=== PATIENT | female | born 1970 | race Caucasian/White ===

== ENCOUNTER 2018-06-19 21:15 | Emergency (ER) | payer MEDICAID, SELFPAY ==
[2018-06-19 21:17] VITALS: BP 171/120; PULSE 92; RESP 18; TEMP 37; O2SAT 97; BMI 36.6
--- NOTE | 2018-06-19 21:57 | EKG12_ITS ---
Test Reason : CHEST PAIN Blood Pressure : / mmHG Vent. Rate : 084 BPM Atrial Rate : 084 BPM P-R Int : 164 ms QRS Dur : 080 ms QT Int : 358 ms P-R-T Axes : 020 006 016 degrees QTc Int : 423 ms Normal sinus rhythm Normal ECG Confirmed by CORNELIO SHUKLA MD ([id number]), electronic news gathering editor MUKUL GIBBS ([id number] on 06/22/2018 3:25:38 PM Referred By: ONI Confirmed By:CORNELIO SHUKLA MD
--- NOTE | 2018-06-19 22:00 | RAD_ITS ---
STUDY: X-RAY CHEST REASON FOR EXAM: Female, 47 years old. Chest tightness TECHNIQUE: Single frontal view of the chest. COMPARISON: None. FINDINGS: The lungs are clear and expanded. There is no demonstrated pleural abnormality. Normal size heart. Normal mediastinum and miki. Normal visualized pulmonary arteries. Normal visualized aortic arch and descending thoracic aorta. Normal visualized thoracic spine. Normal visualized ribs, clavicles, and shoulders. There is no demonstrated abnormality of the visualized soft tissue structures of the upper abdomen. RAD/Chest 1 View (Portable) IMPRESSION: Normal x-ray examination of the chest. Electronically Signed: Neil Saldivar MD at 22:33 EDT , Service support ,
[2018-06-19 22:03] VITALS: BP 172/96; PULSE 97; RESP 20; O2SAT 97
--- NOTE | 2018-06-19 22:03 | ED.VISSUMM ---
- ER Visit Summary Date of Service: 06/19/18 Chief Complaint: Chest pain History of Present Illness: The patient is a 47 F presenting with chest pain. Patient states this started 5 hours prior to arrival. She was at work when it started. She describes it as a chest tightness. She has had these symptoms in the past with asthma. She used her inhaler which improved her symptoms. She states she has been under a lot of stress. She denies nausea, vomiting, diaphoresis. Denies cough, fever. Denies lightheadedness or syncope. She has no coronary disease risk factors. No PE/DVT risk factors. She has a history of asthma. She is not a smoker. Physical Examination: Vitals are stable. Patient is afebrile. Alert no acute distress. HEENT exam is unremarkable. Neck is supple. Lungs are clear and equal bilaterally. Heart is regular rate and rhythm. Abdomen is soft nontender nondistended. Extremities are unremarkable. Skin is warm and dry. No focal neurologic deficit. Remainder of exam is unremarkable. Emergency Department Course and Treatment: Patient was given aspirin on arrival. EKG is sinus rate of 84 with no acute ischemic changes. Chest x-ray shows no acute process. CBC is normal except for white count 11.2. Chemistries unremarkable. D-dimer is negative. Troponin is negative. Patient has no risk factors and is low risk. She is pain-free on reevaluation. Will obtain delta troponin. Delta troponin will be signed out to the oncoming physician. Disposition: Pending Impression: Chest pain This note was generated with [employer] dictation software. It may contain incorrect words, spelling, and punctuation that were not noted in review of the chart prior to signing ED Disposition - Plan for ED Patient: Chief Complaint: Chest Pain Instructions: ED Chest Pain Atypical Unkn Cause Referrals: Gurjit Smith MD [Primary Care Provider] -
[2018-06-19] MEDS: Aspirin 81 MG TAB.CHEW 324 MG PO (22:12)
[2018-06-19 22:24] LABS: Absolute Lymphocyte Count 3.28 X10^3/ul (0.83-4.51); Absolute Neutrophil Count 6.8 X10^3/uL (2.0-7.7); Basophil# 0.02 X10^3/uL; Basophil% 0.2 % (0-1); Eosinophil# 0.21 X10^3/uL; Eosinophils% 1.9 % (0-5); Hematocrit 40.9 % (37-47); Hemoglobin 13.7 g/dl (12.0-15.0); Lymphocyte # 3.28 X10^3/ul (4.0); Lymphocyte % 29.2 % (19-41); Mean Corp Hgb Conc 33.5 g/gl (32-36); Mean Corpuscular Hgb 29.3 pg (27.0-32.0); Mean Corpuscular Volume 87.4 fL (81-99); Mean Platelet Vol. 8.8 fl (6.2-12.0); Monocyte# 0.94 X10^3/uL; Monocyte% 8.4 % (0-10); Neutrophil # 6.76 X10^3/uL (2.7-7.7); Neutrophil % 60.1 % (47-70); Platelet Count 321 K/mm3 (150-450); RBC Distribution Width CV 12.5 % (11.6-14.6); Red Blood Count 4.68 M/mm3 (4.2-5.4); White Blood Count 11.2 K/mm3 (4.4-11.0)
[2018-06-19 22:34] LABS: POSITIVE COUNT NO; POSITIVE DIFFERENTIAL NO; POSITIVE MORPHOLOGY NO
[2018-06-19 22:40] LABS: Anion Gap 9 (5-15); BUN 11 mg/dL (7-18); BUN/Creat Ratio 16.6 RATIO (10-20); Calcium,Total 8.7 mg/dL (8.5-10.1); Chloride 104 mmol/L (98-107); Creatinine, Serum 0.66 mg/dL (0.55-1.02); EST Glomerular Filtration Rate 101 mL/min (>60); Est Glom Filt Rate - Afr Amer 122 mL/min (>60); Estimated Creatinine Clearance 90.02 ml/min; Glucose 96 mg/dL (74-106); Potassium 3.5 mmol/L (3.5-5.1); Sodium Level 138 mmol/L (136-145)
[2018-06-19 22:43] LABS: D-Dimer Quantitative (DVT/PE) 0.28 FEU/ug/m (0.27-0.49)
[2018-06-19 23:00] VITALS: BP 181/100; PULSE 91; RESP 12; O2SAT 97
--- NOTE | 2018-06-19 23:45 | ED.DEP ---
ED Disposition - Plan for ED Patient: Chief Complaint: Chest Pain Instructions: ED Chest Pain Atypical Unkn Cause Referrals: Gurjit Smith MD [Primary Care Provider] -
[2018-06-20 01:58] VITALS: BP 172/96; PULSE 83; RESP 18; O2SAT 97
== END 2018-06-20 01:58 | disposition home or self-care (01) ==
PROVIDERS: Emergency Provider Emergency Medicine; Family Provider Internal Medicine; PCP Internal Medicine
DX: R07.9 Chest pain, unspecified (principal); J45.909 Unspecified asthma, uncomplicated; Z87.442 Personal history of urinary calculi; Z79.51 Long term (current) use of inhaled steroids
CPT/HCPCS: 71045; 80048; 84484; 85025; 85379; 93005; 99284

== ENCOUNTER 2018-10-11 13:48 | Emergency (ER) | payer MEDICAID, SELFPAY ==
[2018-10-11 13:51] VITALS: BP 150/99; PULSE 78; RESP 18; TEMP 36.9; O2SAT 97; BMI 37.9
--- NOTE | 2018-10-11 14:07 | ED.VISSUMM ---
- ER Visit Summary Date of Service: 10/11/18 Chief Complaint: [] Right paralumbar back pain since yesterday improved History of Present Illness: The patient is a 47 F [] [address] of that type of pain long-standing she is been seen by her physician had physical therapy yesterday she turned twisting her back and had pain to the right paralumbar back she took ibuprofen ice she is feeling better today presents for evaluation no numbness weakness or paresthesias actually no symptoms right now normal bowel bladder habits no direct trauma again she has had this in the past Physical Examination: [] General, no distress resting comfortably HEENT is generally unremarkable The neck is supple no adenopathy Cardiovascular, regular rate and rhythm Lungs, clear bilateral Abdomen, soft nontender Extremities, no clubbing cyanosis or edema her back she points to the right paralumbar area this area is nontender the midline back is nontender and the rest of her back and physical exam are unremarkable Neurologic, awake alert answering questions appropriately moving all 4 extremities Test Results: [] Emergency Department Course and Treatment: [] Feeling better at with home therapy at this time she will be given Toradol which she is been able to take follow with her doctors return for change in symptoms she agrees that imaging is not necessary Treatment Plan: [] Disposition: [] Home stable Impression: [] Acute recurrent lumbar back pain This note was generated with [employer] dictation software. It may contain incorrect words, spelling, and punctuation that were not noted in review of the chart prior to signing ED Disposition - Plan for ED Patient: Chief Complaint: Back Referrals: Gurjit Smith MD [Primary Care Provider] -
--- NOTE | 2018-10-11 14:08 | ED.DEP ---
ED Disposition - Plan for ED Patient: Chief Complaint: Back Instructions: ED Spasm Back No Trauma Referrals: Gurjit Smith MD [Primary Care Provider] -
[2018-10-11] MEDS: Ketorolac 60 MG/2 ML Vial IM (14:30)
[2018-10-11 14:37] VITALS: RESP 18; O2SAT 98
== END 2018-10-11 14:48 | disposition home or self-care (01) ==
LOC: ED 14:30
PROVIDERS: Emergency Provider Emergency Medicine; Family Provider Internal Medicine; PCP Internal Medicine
DX: M54.5 Low back pain (principal); Z79.51 Long term (current) use of inhaled steroids; Z79.899 Other long term (current) drug therapy
CPT/HCPCS: 96372; 99282

== ENCOUNTER 2019-08-08 08:37 | Emergency (ER) | payer MEDICAID, SELFPAY ==
[2019-08-08 08:38] VITALS: BP 161/105; PULSE 76; RESP 16; TEMP 35.8; O2SAT 99; BMI 37.3
--- NOTE | 2019-08-08 08:50 | ED.VIS.GEN ---
History of Present Illness Chief Complaint: Back Informant: Patient Onset: Yesterday Current Severity: Mild Narrative: Complains of mild right-sided back pain that occurred yesterday as she was positioning her grandchild leaning over to put him in a chair, history of lumbar back ailment possibly disc disease she seen pain management had her back injected a few months ago doing well and no numbness weakness paresthesias no bowel or bladder complaints no direct trauma indicates she simply could not go to work today because her back continued to have some discomfort and needs a work release Past Medical History - Allergies and Home Meds Allergies/Adverse Reactions: Allergies No Known Allergies Allergy (Verified 08/08/19 08:42) Primary Care Physician: Gurjit Smith MD [Primary Care Provider] - Past Medical History: - - Includes as above Smoking Status: Former smoker Review of Systems General: Denies: Chills, Fever, Sweats Eyes: Denies: Visual changes - bilaterally, Diplopia ENT: Denies: Rhinorrhea, Sore throat Cardiovascular: Denies: Chest pain, Palpitations Respiratory: Denies: Dyspnea, Cough, Dyspnea on exertion Gastrointestinal: Denies: Abdominal pain, Nausea, Vomiting, Diarrhea, Melena, Hematochezia Genitourinary: Denies: Dysuria, Hematuria, Frequency Musculoskeletal: Reports: Back pain. Denies: Extremity Pain Skin: Denies: Rash, Wounds Neurological: Denies: Headache, Weakness, Numbness Physical Exam Vital Signs/Narrative: Vital Signs Temp Pulse Resp BP Pulse Ox 08/08/19 08:38 96.5 F L 76 16 161/105 H 99 General: Well nourished, Well developed, No Acute Distress Head: Normocephalic, Atraumatic Eyes: Perrl, EOMI ENT: Moist mucous membranes, No rhinorrhea Neck: Supple, Nontender Cardiovascular: Regular rate, Regular rhythm, No murmurs Respiratory: No distress, CTA bilaterally, Chest nontender Abdomen: Soft, Nontender, Nondistended, Normal bowel sounds Back: Nontender, Normal Inspection Extremities: Nontender, No edema Skin: Normal color, No rash Neurological: Alert, Oriented x3, Cranial nerves II-XII grossly intact, Normal Strength, Normal Sensation, - - The patient has some vague pain to the right paralumbar back musculature midline backs unremarkable her strength is normal she is able to stand on her toes stand on her heels knee bend without difficulty Psychological: Normal affect, Normal Mood Diagnostic/Tx/Re-eval - Medical Decision Making Given all the above she agrees there is no's reason for imaging she be given Toradol IM she has pain medicine she will use at home and she will place off work for 24 hours follow-up with her outpatient providers Home stable Final impression acute recurrent right paralumbar back pain ED Disposition - Plan for ED Patient: Diagnosis: Back pain Instructions: Back Sprain/Strain Referrals: Gurjit Smith MD [Primary Care Provider] -
[2019-08-08] MEDS: Ketorolac 60 MG/2 ML Vial IM (08:55)
== END 2019-08-08 09:13 | disposition home or self-care (01) ==
LOC: ED 09:03
PROVIDERS: Emergency Provider Emergency Medicine; Family Provider Internal Medicine; PCP Internal Medicine
DX: M54.5 Low back pain (principal); Z87.891 Personal history of nicotine dependence
CPT/HCPCS: 96372; 99282

== ENCOUNTER 2022-02-26 22:14 | Emergency (ER) | payer MEDICAID, SELFPAY ==
[2022-02-26 22:14] VITALS: BP 163/105; PULSE 98; RESP 16; TEMP 36.6; O2SAT 97; BMI 82.2
--- NOTE | 2022-02-26 22:39 | EX.ED.UPPERE ---
HPI History of Present Illness HPI Narrative: Patient presents with right wrist pain that has been constant for the past 2 weeks. Patient states she fell 1 month ago and landed on her outstretched right wrist. Patient states that her wrist initially was not hurting but over the last 2 weeks it started hurting her. Patient describes her pain as sharp. Patient states nothing makes it worse and nothing makes it better. Patient denies any paresthesias or weakness. Patient denies any other injuries. Chief Complaint: Upper Extremity Injury Informant: patient Occured/Mechanism Mechanism/Context: Yes fall Onset/Context/Timing Onset: Weeks (2) Context: Gradual Onset Timing: Continuous Quality of Pain: Sharp Location: Right wrist Worsened by: Nothing Relieved by: Nothing Associated Symptoms Associated Symptoms: Negative for Parasthesia, Weakness and Loss of Funtion PFSH [facility] Medical History HTN (hypertension) Kidney stones Home Medications lisinopril 20 mg PO DAILY 10/11/18 [History Last Taken 08/08/19] Allergy/AdvReac Type Severity Reaction Status Date / Time No Known Allergies Allergy Verified 02/26/22 22:16 Surgical History H/O thyroidectomy Social History Smoking Status: Former smoker ROS ROS ED Constitutional Constitutional ED: Denies chills or fever(s) Eyes Eyes: Denies blurry vision or change in vision ENT ENT ED: Denies rhinorrhea or sore throat Cardiovascular Cardiovascular: Denies chest pain or palpitations Respiratory/Chest Respiratory/Chest: Denies cough or dyspnea Gastrointestinal Gastrointestinal: Denies nausea or vomiting Genitourinary Genitourinary ED: Denies dysuria or hematuria Musculoskeletal Musculoskeletal: Denies back pain or neck pain Integumentary Reports rash; Denies abscess Neurologic Neurologic: Denies headache(s) or weakness Allergic/Immunologic Allergic/Immunologic ED: Denies mouth swelling or urticaria EXAM Physical Exam Const Vital Signs: 02/26/22 22:14 Temperature 97.8 F Temperature Source Temporal Pulse Rate 98 Respiratory Rate 16 Blood Pressure 163/105 H Blood Pressure Mean 124 Pulse Ox 97 Oxygen Delivery Method Room Air Positive well nourished and well developed General Appearance ED: well developed and NAD HEENT Reports moist mucous membranes Neck full ROM Extremity Extremity Narrative: There is tenderness over the radial aspect of the right wrist. There is mild tenderness in the anatomic snuffbox. Range of motion was slightly limited in all motions of the right wrist secondary to pain. There is no deformity. There is no edema or ecchymosis. Radial pulses are equal bilaterally. Strength is 5/5 in the radial, median, and ulnar areas. Sensation was intact to light touch in the radial, median, and ulnar areas. Neuro oriented x3, CN's II-XII intact bilaterally, moves all extremities, no focal motor deficits and no sensory deficits noted Sensorium / Orientation: alert Psych mental status grossly normal MDM MDM MDM Narrative Medical decision making narrative: X-rays of the right wrist were obtained. There are 3 views. On my interpretation, there is no acute fracture or dislocation. There is no soft tissue swelling. Radiologist also interpreted the x-ray and agrees. Patient was placed in a prefabricated thumb spica splint. Patient was instructed to ice and elevate the right wrist. Patient was instructed to take Tylenol or ibuprofen as needed for pain. Patient was instructed to follow-up with her primary care physician in 7 to 10 days. Patient understood and was agreeable with the plan. All questions were answered. Discharge Plan Triage Chief Complaint: Upper Extremity Injury ED Provider: Jan Preciado Dx/Rx/DC Orders Clinical Impression: Unspecified sprain of right wrist, initial encounter Instructions: ED Wrist Sprain Prescriptions: No Action lisinopril 10 tablet 20 mg PO DAILY RF: 0 Primary Care Provider: Gurjit Smith Referrals: Gurjit Smith MD [Primary Care Provider] - 1-2 Weeks Disposition Disposition: Home, Self Care
--- NOTE | 2022-02-26 22:46 | RAD_ITS ---
INDICATION: Injury/Pain EXAMINATION/TECHNIQUE: X-RAY - RIGHT XR Wrist Min 3 Views 3 VIEWS COMPARISON: None. FINDINGS: SOFT TISSUES: No soft tissue swelling or gas. No radiopaque foreign body. BONES/JOINTS: No acute fracture or malalignment. Preservation of the joint space and no degenerative bony proliferative changes. No sclerotic or destructive changes observed. RAD/Wrist min 3 Views IMPRESSION: Negative. Electronically Signed: Charles Hernandez DO at 23:16 EDT ,
== END 2022-02-26 23:31 | disposition home or self-care (01) ==
PROVIDERS: Emergency Provider Emergency Medicine; PCP Internal Medicine; Visit Provider Emergency Medicine
DX: S63.91XA Sprain of unspecified part of right wrist and hand, initial encounter (principal); I10 Essential (primary) hypertension; Z87.891 Personal history of nicotine dependence; W19.XXXA Unspecified fall, initial encounter; Z79.899 Other long term (current) drug therapy
CPT/HCPCS: 29130; 73110; 99283

== ENCOUNTER 2024-01-01 20:13 | Emergency (ER) | payer MEDICAID, SELFPAY ==
[2024-01-01 20:14] VITALS: BP 168/102; PULSE 93; RESP 18; TEMP 36.4; O2SAT 100; BMI 37.9
--- NOTE | 2024-01-01 20:24 | EX.ED.UPPERE ---
HPI History of Present Illness Chief Complaint: Upper Extremity Injury Detail of Chief Complaint: Left shoulder pain Informant: patient Narrative Narrative: Patient presents to the emergency department complaint of pain in her left shoulder that she has had for about 3 days. She states she has had the pain before and she was evaluated for it years back and thinks she had some spurs may be. Patient denies any fall or injury. She does do a lot of repetitive motions with her arms as she works in the [employer]. Patient states pain worse with laying on her shoulder in certain movements. She denies any chest pain or shortness of breath. PFSH PFS Medical History (Updated 01/01/24 @ 21:[address] Nkechi Marie, DO) Asthma HTN (hypertension) Kidney stones Home Medications lisinopril 10 mg tablet 20 mg PO DAILY 10/11/18 [History Last Taken 08/08/19] albuterol sulfate 90 mcg/actuation aerosol inhaler 2 puff inhalation Q6H PRN PRN wheezing 01/01/24 [History Last Taken Unknown] naproxen 500 mg tablet (Naprosyn) 500 mg PO BID PRN pain #20 tabs 01/01/24 [Rx Last Taken Unknown] Allergy/AdvReac Type Severity Reaction Status Date / Time No Known Allergies Allergy Verified 01/01/24 20:15 Surgical History (Updated 01/01/24 @ 20:26 by Wendy Driscoll) H/O thyroidectomy Social History Smoking Status: Former smoker ROS ROS ED Review of Systems ROS Unobtainable: other Constitutional Constitutional ED: Reports lethargy; Denies chills, fever(s), sweats or weight loss Eyes Eyes: Denies blurry vision, change in vision or diplopia ENT ENT ED: Denies rhinorrhea or sore throat Cardiovascular Cardiovascular: Denies chest pain, orthopnea or racing heartbeat Respiratory/Chest Respiratory/Chest: Denies cough, dyspnea, dyspnea on exertion, orthopnea or sputum Gastrointestinal Gastrointestinal: Denies abdominal pain, diarrhea, nausea or vomiting Genitourinary Genitourinary ED: Denies dysuria, hematuria or urinary frequency Musculoskeletal Musculoskeletal: Reports other Details: Left shoulder pain ; Denies arthralgias, back pain, myalgias or neck pain Integumentary Denies abscess, Abrasions or rash Neurologic Neurologic: Denies headache(s) or weakness Psychiatric Psychiatric: Denies anxiety, depression or suicidal thoughts Endocrine Endocrinology: Denies polydipsia, polyphagia or polyuria Hematologic/Lymphatic Hematologic/Lymphatic: Denies easy bleeding, easy bruising or lymphadenopathy Allergic/Immunologic Allergic/Immunologic ED: Denies mouth swelling, tongue swelling or urticaria EXAM Physical Exam Const Vital Signs: 01/01/24 20:14 Temperature 97.6 F L Temperature Source Temporal Pulse Rate 93 Respiratory Rate 18 Blood Pressure 168/102 H Blood Pressure Mean 124 Pulse Ox 100 Oxygen Delivery Method Room Air Positive well nourished and well developed General Appearance ED: well developed and NAD HEENT Reports TM's clear and moist mucous membranes normocephalic and atraumatic; Negative for trauma or tenderness Tympanic Membrane ED: Yes TM's clear Eyes PERRL and EOMs intact bilaterally General Eye ED: Negative for pale conjunctiva or scleral icterus Neck no lymphadenopathy, supple and no JVD General: Negative for tenderness Chest Wall inspection of chest normal and palpation of chest normal Chest: Negative for tenderness Resp normal respiratory effort and clear to auscultation bilaterally Effort and Inspection: Negative for respiratory distress or pain with movement Auscultation: Negative for rhonchi, wheezes or diminished lung sounds Cardio regular rate, regular rhythm, S1 normal heart sound, S2 normal heart sound and no murmurs Peripheral Pulses: pulses 2+ throughout GI normal to inspection, nondistended, normoactive bowel sounds, soft to palpation, non-tender, non-distended and no masses Back/Spine no CVA tenderness and no thoracic nor lumbar tenderness Extremity normal to inspection Extremity Narrative: Patient with tenderness over the glenohumeral joint as well as the trapezius and left upper anterior chest wall. Pain with abduction at the shoulder seems to reproduce her pain. Neurovascular intact distally. Normal online user experience strategist strength. There is no erythema or warmth or soft tissue swelling noted at the glenohumeral joint. General Extremety ED: Negative for edema General Extremity: Negative for edema Neuro oriented x3, CN's II-XII intact bilaterally, no sensory deficits noted and gait normal Sensorium / Orientation: awake, alert, oriented to person, oriented to place and oriented to time Motor Exam: strength 5/5 throughout and strength abnormal Psych mental status grossly normal Skin no rashes or lesions noted and no wounds MDM MDM MDM Narrative Medical decision making narrative: Patient presents with atraumatic left arm pain. X-ray of the shoulder obtained showed no fractures or dislocations or bone spurring. This point should be given a sling for comfort. Suspect this may be pain due to repetitive motions versus potentially tendinitis or bursitis. Will write for naproxen and advised to follow-up with her primary care physician within next 3 to 5 days. Radiography Diagnostic Testin view x-rays of the left shoulder obtained interpreted by myself as no evidence of fracture dislocation or acute process. Discharge Plan Triage Chief Complaint: Upper Extremity Injury ED Provider: Nkechi Marie Dx/Rx/DC Orders Clinical Impression: Acute pain of left shoulder Instructions: ED Shoulder Pain, Uncertain Cause Prescriptions: New naproxen [Naprosyn] 500 mg tablet 500 mg PO BID PRN (Reason: pain) Qty: 20 0RF No Action lisinopril 10 tablet 20 mg PO DAILY albuterol sulfate 90 mcg/actuation HFA aerosol inhaler 2 puff inhalation Q6H PRN PRN (Reason: wheezing) Primary Care Provider: Gurjit Smith Referrals: Gurjit Smith MD [Primary Care Provider] - 3-5 Days Disposition Disposition: Home, Self Care
--- NOTE | 2024-01-01 20:30 | RAD_ITS ---
INDICATION: pain EXAMINATION/TECHNIQUE: X-RAY - LEFT XR Shoulder Min 2 Views 4 VIEWS COMPARISON: No relevant prior comparison study available FINDINGS: SOFT TISSUES: No soft tissue swelling or gas. No radiopaque foreign body. BONES/JOINTS: No acute fracture or subluxation.. Normal alignment. Preservation of the joint space.. No sclerotic or destructive changes observed. RAD/Shoulder min 2 Views IMPRESSION: No fracture or malalignment. Electronically Signed: Camilo Villalobos MD at 21:27 EDT ,
[2024-01-01 21:01] VITALS: BP 120/65; PULSE 64; RESP 12; TEMP 37.1; O2SAT 100
== END 2024-01-01 21:05 | disposition home or self-care (01) ==
PROVIDERS: Emergency Provider Emergency Medicine; PCP Internal Medicine; Visit Provider Emergency Medicine
DX: M25.512 Pain in left shoulder (principal); I10 Essential (primary) hypertension; J45.909 Unspecified asthma, uncomplicated; Z87.891 Personal history of nicotine dependence; Z79.899 Other long term (current) drug therapy; Z79.51 Long term (current) use of inhaled steroids
CPT/HCPCS: 73030; 99282